=== PATIENT | male | born 1955 | race Caucasian/White ===

== ENCOUNTER → 2017-12-22 09:44 | Outpatient (CLI) | payer OTHER, SELFPAY ==
[2017-12-22 15:08] LABS: Alanine Aminotransferase 47 U/L (12-78); Albumin Level 3.7 gm/dL (3.4-5.0); Albumin/Globulin Ratio 1.1 (1.1-1.8); Alkaline Phosphatase 45 U/L (46-116); Anion Gap 13.7 mEq/L (5-15); Aspartate Amino Transferase 16 U/L (15-37); Bilirubin,Total 0.4 mg/dL (0.2-1.0); Blood Urea Nitrogen 17 mg/dL (7-18); Calcium 9.1 mg/dL (8.5-10.1); Carbon Dioxide 29 mmol/L (21.0-32.0); Chloride 103 mmol/L (98-107); Chol/HDL Ratio 1.3 (1-3.5); Cholesterol 98 mg/dL (140-200); Creatinine,Serum 1.01 mg/dL (0.70-1.30); Estimated Glomerular Filt Rate 75 ml/min (>60); GFR (African American) 91 ML/MIN (>60); Globulin 3.4 gm/dl (1.3-3.2); Glucose 171 mg/dL (74-106); HDL Cholesterol 73 mg/dL (27-67); LDL Cholesterol 15 mg/dL (0-130); Potassium 4.7 mmoL/L (3.5-5.1); Sodium 141 mmol/L (136-145); Total Protein,Serum 7.1 gm/dL (6.4-8.2); Triglycerides 50 mg/dL (30-200); VLDL Cholesterol 10 mg/dL (0-40)
[2017-12-22 15:24] LABS: Hemoglobin A1C 6.7 % (0.0-7.0)
== END ==
PROVIDERS: PCP Nurse Practitioner Family; Visit Provider Nurse Practitioner Family
DX: Z00.00 Encounter for general adult medical examination without abnormal findings (principal); E11.9 Type 2 diabetes mellitus without complications
CPT/HCPCS: 36415; 80053; 80061; 83036

== ENCOUNTER 2024-11-10 15:18 | Emergency (ER) | payer OTHER, SELFPAY ==
[2024-11-10 15:26] VITALS: BP 169/104; PULSE 68; O2SAT 98
[2024-11-10 15:28] VITALS: BP 169/104; PULSE 68; RESP 18; TEMP 36.7; O2SAT 98; BMI 25.7
[2024-11-10 15:30] VITALS: BP 152/89; PULSE 68; O2SAT 98
--- NOTE | 2024-11-10 15:41 | XR_ITS ---
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 Views: 3 or more views. COMPARISON: CR XR HAND LT MIN 3V 11/10/2024 3:48 PM FINDINGS: Bones/joints: Normal. No fracture. No subluxation or dislocation. The scapholunate and lunotriquetral intervals are normal. Soft tissues: Unremarkable. No radiopaque foreign body IMPRESSION: No visible acute skeletal pathology.
--- NOTE | 2024-11-10 15:41 | XR_ITS ---
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 Views: 2 views. COMPARISON: No relevant prior studies available. FINDINGS: Bones/joints: Enthesophyte of the triceps tendon. The visible skeletal structures are otherwise unremarkable. Soft tissues: Unremarkable. No radiopaque foreign body. IMPRESSION: No visible acute skeletal pathology.
--- NOTE | 2024-11-10 15:43 | HMH.EDGENADL ---
Discharge Plan Disposition Chief Complaint: Extremity Injury, Upper Referrals Follow up/Referrals: Provider,Referral, [Primary Care Provider, Medical] - See instructions Print Language Print Language: [place] Discharge ED Provider: Piero Baez General Adult HPI General Chief complaint: Extremity Injury, Upper Stated complaint: AO 10-5 left hand cut and right hand broke Time Seen by Provider: 11/10/24 15:25 Mode of Arrival: Ambulatory Source of Information: Patient Description of Symptoms (Recalled from ER Triage Doc. by RN): laceration to left hand. beuiding and swelling to r hand/wrist. got caught in a haybaler History of Present Illness HPI narrative: Patient is a 69-year-old [id number] male who presents emergency department for evaluation of traumatic injury sustained to his hand. He did not cut off his PTO shaft and was working on a pillar when he inadvertently had an injury to his right distal forearm and left dorsal wrist. Left dorsal wrist resulted in a wound that was bleeding caused him to present here for continued evaluation. Tdap is not up-to-date. No other traumatic complaints at this time. Please note that above description of symptoms, in this electronic medical record under categorization of recalled from ER triage doctor by RN are reflective of an initial nursing assessment, however, is not reflective of my full history and physical exam that was personally taken and clarified. Consequentially, this preceding description of symptoms, which may include the patient's categorized chief complaint in the EMR, do not reflect my personal clinical impression, and the ultimate description of history of present illness and patient stated complaints should be deferred to this section of the note. Unless stated otherwise or congruent with this section of the note, additional signs, symptoms, or incongruence should be interpreted as inaccurate with my clinical impression. Related Data Allergies Allergy/AdvReac Type Severity Reaction Status Date / Time Penicillins (PENICILLINS) Allergy Mild Unknown Verified 11/10/24 16:00 allergy reaction [facility] Disclaimer: The information contained in this section may have been updated after the patient was seen, as this information can be updated by other users. Social History Smoking Status: Never smoker alcohol intake: never current occupational status: other Travel in the last 8 weeks?: None ROS Obtained: Yes Systems reviewed as appropriate & no additional complaints except as documented Physical Exam General General appearance: alert and in no apparent distress Head Head exam: atraumatic and normocephalic Eye Eye exam: Present PERRL and EOMI ENT ENT exam: Present mucous membranes moist Neck Neck exam: Present normal inspection Chest Chest inspection: Present normal inspection and symmetric chest wall rise Respiratory Respiratory exam: Absent respiratory distress Cardiovascular Cardiovascular exam: Present regular rate and normal rhythm Extremities Exam Extremities exam: Present tenderness (Tenderness over the right dorsal distal forearm. Active and passive range of motion preserved in all digits of the right upper extremity, no tenderness of the right hand or elbow.) and other (Serpiginous laceration over the dorsal left wrist that is largely hemostatic, distally neurovascularly intact. No significant point tenderness of the bones of the left wrist or hand. Active and passive range of motion preserved.) Neurological Exam Neurological exam: Present alert Psychiatric Psychiatric exam: Present normal affect Skin Skin exam: Present warm and dry Medical Decision Making Medical Records Screening: Per USPSTF and CDC recommendations, given the prevalence of disease in our region, it is our hospital?s policy to screen for HIV and viral Hepatitis for all patients aged 18 and over and those with ongoing risk factors. Dereje Inquiry Pt receiving controlled substance: No Vital Signs: 11/10/24 15:26 11/10/24 15:28 11/10/24 15:30 Temperature 98.1 F Temperature Source Oral Pulse Rate 68 68 Pulse Rate [Right] 68 Respiratory Rate 18 Blood Pressure 169/104 H 152/89 H Blood Pressure [Right Arm] 169/104 H Blood Pressure Mean [Right Arm] 125 02 Sat by Pulse Oximetry 98 98 98 Oxygen Delivery Method Room Air Room Air Room Air 11/10/24 16:00 11/10/24 16:09 Temperature Temperature Source Pulse Rate 62 64 Pulse Rate [Right] Respiratory Rate Blood Pressure 156/87 H 157/88 H Blood Pressure [Right Arm] Blood Pressure Mean [Right Arm] 02 Sat by Pulse Oximetry 96 98 Oxygen Delivery Method Room Air Room Air Orders (Tests/Meds): ED MEDICATIONS Discontinued Medications Generic Name Dose Route Start Last Admin Trade Name Freq PRN Reason Stop Dose Admin Acetaminophen 1,000 mg 11/10/24 15:41 11/10/24 16:02 Acetaminophen 500mg Tab PO 11/10/24 15:42 1,000 mg ONCE ONE Administration Tetanus/Reduced Diphtheria/Acell Pertussis 0.5 ml 11/10/24 15:41 11/10/24 16:02 Tet/Diphth/Pert-Adult 0.5ml Syringe IM 10/05/25 15:42 0.5 ml .ONCE ONE Administration ORDERS Category Date Time Status Forearm XR right 2 views [XR forearm RT 2V] Stat Exams 11/10/24 15:41 Taken Wrist XR left minimum 3 views [XR wrist LT min 3V] Stat Exams 11/10/24 15:41 Taken XR hand LT min 3V Stat Exams 11/10/24 15:46 Taken Medical Decision Narrative: In summary patient is 61-year-old male with past medical history of scrota above presents emergency department for evaluation of traumatic injury sustained to his left wrist and right distal forearm. Patient is hemodynamically stable and nontoxic-appearing upon arrival, afebrile. Left wrist will be irrigated and soaked in Hibiclens solution, Tdap will be updated. Plain film be obtained to rule out underlying fracture. Active and passive range of motion left upper extremity preserved no concern for tendinous involvement. With respect to the right upper extremity there is tenderness over the distal right forearm for which differential includes fracture, musculoskeletal strain, among others. Plain film of the right forearm will be obtained. Initial inventions include Tylenol. X-rays informally interpreted by me no acute displaced fracture. Keflex administered in the ED. Wound underwent primary repair with success and patient is appropriate for discharge at this time will follow-up in 10 days for evaluation of suture removal. Patient was discharged with a course of Keflex and was given return precautions. Procedure: Procedure form was laceration repair. Procedure performed by Piero Baez. Laceration was numbed with lidocaine 1% with epinephrine approximately 12 cc. Anesthesia achieved. The serpiginous laceration over the left dorsal wrist was irrigated with Hibiclens and sterile water. Laceration approximately 10 cm in total length. Devitalized tissue was removed with iris scissors. The wound was approximated with a total of 8 sutures. 4 of which were simple interrupted, 4 of which were horizontal mattress, good approximation was achieved. Nonstick dressing placed over this followed by cock up wrist splint. Patient tolerated the procedure well there were no immediate complications. Critical Care Critical Care Time Critical Care Time: No
--- NOTE | 2024-11-10 15:46 | XR_ITS ---
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 Laceration posterior metacarpal area TECHNIQUE: Imaging protocol: Radiologic exam of the left hand. Views: 3 or more views. COMPARISON: CR XR WRIST LT MIN 3V 11/10/2024 3:48 PM FINDINGS: Bones/joints: Normal. No fracture. No subluxation or dislocation. Soft tissues: Unremarkable. No radiopaque foreign body. IMPRESSION: No acute findings.
[2024-11-10 16:00] VITALS: BP 156/87; PULSE 62; O2SAT 96
[2024-11-10] MEDS: ACETAMINOPHEN 500MG TAB 1000 MG PO (16:02)
[2024-11-10] MEDS: TET/DIPHTH/PERT-ADULT 0.5ML SYRINGE 0.5 ML IM (16:02)
[2024-11-10 16:09] VITALS: BP 157/88; PULSE 64; O2SAT 98
[2024-11-10 17:40] VITALS: BP 167/92; PULSE 77; RESP 16; TEMP 36.9; O2SAT 98
--- NOTE | 2024-11-10 17:42 | PC.NURSE ---
spoke with pt and he states allergy is unknown to n. is was over 60 years ago and he was told his dad was allergic to it as a kid. notified
== END 2024-11-10 17:41 | disposition home or self-care (01) ==
PROVIDERS: Emergency Provider Emergency Medicine
DX: S61.512A Laceration without foreign body of left wrist, initial encounter (principal); M79.631 Pain in right forearm; W30.0XXA Contact with combine harvester, initial encounter
CPT/HCPCS: 12004; 73090; 73110; 73130; 90471; 90715; 96372; 99284; J2004